=== PATIENT | male | born 1955 | race Caucasian/White ===

== ENCOUNTER 2016-12-13 15:34 | Emergency (ER) | payer BC ==
[2016-12-13 16:02] VITALS: BP 129/71
[2016-12-13] MEDS ORDERED: Sodium Chloride 0.9% 1,000 ML IV ONE (16:04)
--- NOTE | 2016-12-13 16:04 | EDM.PDOC ---
ED HPI RENAL/ - General Chief Complaint: Genitourinary Problem Stated Complaint: BLADDER INFECTION Time Seen by Provider: 12/13/16 15:58 Source of Information: Reports: Patient History Limitations: Reports: No limitations - History of Present Illness INITIAL COMMENTS - FREE TEXT/NARRATIVE: 61 yo White Male c/o Fever of 102 at home today w/ chills. Pt. states burning urination X 3 days. PMHx. Kidney stones and s/p Lithotripsy for left kidney stone 12/2015. Pt. also admits to small kidney stone on right side. Pt. denies any back pain. Symptom Onset Date: 12/10/16 Symptom Onset Time: 12:00 Timing/Duration: Reports: Day(s): Location: Reports: suprapubic Quality: Reports: burning Severity: moderate Worsens with: Reports: urinating Associated Symptoms: Reports: burning, dysuria - Related Data Allergies/ADRs: Allergies Allergy/AdvReac Type Severity Reaction Status Date / Time No Known Allergies Allergy Verified 12/13/16 15:50 Home Meds: Home Meds Allopurinol [Zyloprim] 300 mg PO DAILY 12/13/16 [History] Lisinopril 10 mg PO DAILY 12/13/16 [History] Metoprolol Succinate [Toprol XL] 100 mg PO DAILY 12/13/16 [History] amLODIPine [Norvasc] 10 mg PO DAILY 12/13/16 [History] Past Medical History Cardiovascular History: Reports: Hypertension Genitourinary History: Reports: Renal calculus - Infectious Disease History Infectious Disease History: Reports: Chicken pox - Past Surgical History Cardiovascular Surgical History: Reports: None Social & Family History - Family History Family Medical History: Noncontributory - Tobacco Use Smoking Status *Q: Never Smoker - Caffeine Use Caffeine Use: Reports: Coffee - Recreational Drug Use Recreational Drug Use: No ED ROS GENERAL - Review of Systems Review Of Systems: See Below Constitutional: Reports: fever, chills HEENT: Reports: No symptoms Respiratory: Reports: No Symptoms Cardiovascular: Reports: No symptoms Endocrine: Reports: no symptoms GI/Abdominal: Reports: Abdominal pain : Reports: dysuria Musculoskeletal: Reports: no symptoms Skin: Reports: no symptoms Neurological: Reports: No Symptoms Psychiatric: Reports: No symptoms Hematologic/Lymphatic: Reports: no symptoms Immunologic: Reports: no symptoms ED EXAM, RENAL/ - Physical Exam Exam: See Below Exam Limited By: No limitations General Appearance: obese (Morbid) Eye Exam: bilateral eye: PERRL Ears: normal external exam Nose: normal inspection Throat/Mouth: Normal inspection Head: atraumatic Neck: normal inspection Respiratory/Chest: no respiratory distress Cardiovascular: normal peripheral pulses GI/Abdominal: tender (suprpubic) Back Exam: normal inspection, full range of motion Extremities: normal inspection, normal range of motion Neurological: alert, oriented, CN II-XII intact Psychiatric: normal affect Skin Exam: Warm, Normal color, No rash Lymphatic: no adenopathy Course - Vital Signs Text/Narrative:: Discussed with patient and Last Recorded V/S: Last Vital Signs Temp 36.8 C 12/13/16 16:01 Pulse 115 H 12/13/16 16:01 Resp 20 12/13/16 16:01 BP 129/71 12/13/16 16:01 Pulse Ox 95 12/13/16 16:01 - Orders/Labs/Meds Orders: Active Orders 24 hr Category Date Time Status Abdomen Pelvis wo Cont [CT] Urgent Exams 12/13/16 16:17 Taken CULTURE URINE [RM] Stat Lab 12/13/16 16:15 Received Labs: Laboratory Tests 12/13/16 12/13/16 Range/Units 15:45 16:10 WBC 14.6 H (5.0-10.0) 10^3/uL RBC 4.89 (4.6-6.2) 10^6/uL Hgb 14.3 (14.0-18.0) g/dL Hct 42.3 (40.0-54.0) % MCV 86.5 (80-100) fL MCH 29.2 (27.0-34.0) pg MCHC 33.8 (33.0-35.0) g/dL Plt Count 145 L (150-450) 10^3/uL Neut % (Auto) 90.5 H (42.2-75.2) % Lymph % (Auto) 4.1 L (20.5-50.1) % [place] % (Auto) 5.1 (2-8) % Eos % (Auto) 0.1 L (1.0-3.0) % Baso % (Auto) 0.2 (0.0-1.0) % Urine Color Dark yellow (YELLOW) Urine Appearance Turbid (CLEAR) Urine pH 5.5 (5.0-9.0) Ur Specific [place] 1.020 (1.005-1.030) Urine Protein 100 H (NEGATIVE) Urine Glucose (UA) Negative (NEGATIVE) Urine Ketones Negative (NEGATIVE) Urine Occult Blood Moderate H (NEGATIVE) Urine Nitrite Positive H (NEGATIVE) Urine Bilirubin Small H (NEGATIVE) Urine Urobilinogen 1.0 (0.2-1.0) mg/dL Ur Leukocyte Esterase Moderate H (NEGATIVE) Urine RBC 5-10 H /HPF Urine WBC Semi-packed H (0-5/HPF) /HPF Urine Bacteria Moderate H (0-FEW/HPF) /HPF Meds: Medications Discontinued Medications Generic Name Dose Route Start Last Admin Trade Name Freq PRN Reason Stop Dose Admin Sodium Chloride 1,000 mls @ 999 mls/hr 12/13/16 16:04 12/13/16 16:13 Normal Saline IV 12/13/16 17:04 999 mls/hr .BOLUS ONE Administration Ceftriaxone Sodium 1 gm/ 50 mls @ 100 mls/hr 12/13/16 16:19 12/13/16 16:26 Sodium Chloride IV 12/13/16 16:48 100 mls/hr ONETIME ONE Administration Departure - Departure Time of Disposition: 17:43 Disposition: Home, Self-Care 01 Condition: good Clinical Impression: UTI, Urinary tract infectious disease, Kidney stone Forms: ED Department Discharge Additional Instructions: Rest Increase intake of Fluids ( Water / Cranberry Juice) Take the oral antibiotic and complete - Levaquin 500mg QD # 7 F/U w/ PCP - My Orders Last 24 Hours: My Active Orders 12/13/16 16:15 CULTURE URINE [RM] Stat 12/13/16 16:17 Abdomen Pelvis wo Cont [CT] Urgent - Assessment/Plan Last 24 Hours: My Active Orders 12/13/16 16:15 CULTURE URINE [RM] Stat 12/13/16 16:17 Abdomen Pelvis wo Cont [CT] Urgent
[2016-12-13] MEDS ORDERED: cefTRIAXone 1 GM in Sodium Chloride 0.9% 50 ML IV ONE (16:19)
--- NOTE | 2017-01-18 12:37 | CT ---
Addendum report: Reevaluation (with Dr. Carl Shah) lumbar spine morbidly obese male with "left scia tic" confirmed signs of chronic multilevel disc disease i.e. interspace narrowing with gas and nucle us pulposus and hypertrophic marginal spondylosis L2-3 and particularly lowest L5-S1 levels. Asymmetric bone encroachment on the left at the L5-S1 level. MRI suggested.
== END 2016-12-13 18:18 | disposition home or self-care (01) ==
LOC: DL.ED 15:34
DX: N20.0 Calculus of kidney (principal); N39.0 Urinary tract infection, site not specified; I10 Essential (primary) hypertension; Z79.899 Other long term (current) drug therapy
CPT/HCPCS: 36415; 74176; 81001; 85025; 87086; 96361; 96365; 99284; J0696; J7030; J7050; 87088; 87186

== ENCOUNTER 2017-01-03 14:13 | Emergency (ER) | payer BC ==
--- NOTE | 2017-01-03 14:19 | EDM.PDOC ---
ED HPI ENT - General Chief Complaint: ENT Problem Stated Complaint: EXTREME EAR ACHES Time Seen by Provider: 01/03/17 14:19 Source of Information: Reports: Patient, RN, RN notes reviewed History Limitations: Reports: No limitations - History of Present Illness INITIAL COMMENTS - FREE TEXT/NARRATIVE: Onset of right ear pain yesterday morning worsened throughout the day. Thought he felt something draining in the ear canal last evening, but did not see any material. Today the ear has become extremely painful and hearing from the right ear seems muffled. Has been working outside and in the field and has some sinus inflammation. Denies fever, chills or cough. Timing/Duration: Reports: Constant Severity: severe Location: Reports: right Ear Quality: Reports: Ache, Throbbing Improves with: Reports: None Worsens with: Reports: None Associated Symptoms: Reports: no other symptoms - Related Data Allergies/ADRs: Allergies Allergy/AdvReac Type Severity Reaction Status Date / Time No Known Allergies Allergy Verified 01/03/17 14:24 Home Meds: Home Meds Allopurinol [Zyloprim] 300 mg PO DAILY 12/13/16 [History] Lisinopril 10 mg PO DAILY 12/13/16 [History] Metoprolol Succinate [Toprol XL] 100 mg PO DAILY 12/13/16 [History] amLODIPine [Norvasc] 10 mg PO DAILY 12/13/16 [History] Past Medical History Cardiovascular History: Reports: Hypertension Genitourinary History: Reports: Renal calculus Musculoskeletal History: Reports: Gout Endocrine/Metabolic History: Reports: Obesity/BMI 30+ - Infectious Disease History Infectious Disease History: Reports: Chicken pox - Past Surgical History Cardiovascular Surgical History: Reports: None Social & Family History - Family History Family Medical History: Noncontributory - Tobacco Use Smoking Status *Q: Never Smoker - Caffeine Use Caffeine Use: Reports: Coffee - Recreational Drug Use Recreational Drug Use: No - Living Situation & Occupation Living situation: Reports: Occupation: employed (self) ED ROS ENT - Review of Systems Review Of Systems: ROS reveals no pertinent complaints other than HPI. ED EXAM, ENT - Physical Exam Exam: See Below Exam Limited By: No limitations General Appearance: alert, WD/WN, no apparent distress, obese Eye Exam: bilateral eye: normal inspection Ears: auricular erythema (at the tragus and innerhelix adjacent to the canal. ) , auricular tenderness, canal discharge (yellow and green right. ), canal swelling, other (unable to visualize right TM.). No: mastoid swelling, mastoid tenderness Nose: no blood, nasal discharge (clear) Mouth/Throat: Normal inspection, Normal gums, Normal lips, Normal oropharynx, Normal teeth Head: atraumatic, normocephalic Neck: normal inspection, supple, non-tender, full range of motion. No: lymphadenopathy (L), lymphadenopathy (R) Respiratory/Chest: no respiratory distress, lungs clear, normal breath sounds, no accessory muscle use, chest non-tender Cardiovascular: regular rate, rhythm Neurological: alert, oriented, no motor/sensory deficits Psychiatric: normal affect, normal mood Skin: Warm, Dry, Intact, No rash Course - Vital Signs Last Recorded V/S: Last Vital Signs Temp 35.9 C 01/03/17 14:21 Pulse 93 01/03/17 14:21 Resp 18 01/03/17 14:21 BP 152/84 H 01/03/17 14:21 Pulse Ox 97 01/03/17 14:21 Departure - Departure Time of Disposition: 14:24 Disposition: Home, Self-Care 01 Condition: good Clinical Impression: Cellulitis of right external ear Otitis externa Qualifiers: Otitis externa type: unspecified type Laterality: right Chronicity: acute Qualified Code(s): H60.501 - Unspecified acute noninfective otitis externa, right ear Instructions: Otitis Externa, [id number], Cellulitis, Adult, [id number] Forms: ED Department Discharge Additional Instructions: Cipro 500mg. Cortisporin otic suspension. Albert 5mg/325mg. *do not drive or operate [employer] while taking this medications. Follow up in clinic with Dr. Shah in 3-5 days for recheck.
[2017-01-03 14:24] VITALS: BP 152/84
== END 2017-01-03 14:37 | disposition home or self-care (01) ==
LOC: DL.ED 14:13
DX: H60.11 Cellulitis of right external ear (principal); H60.501 Unspecified acute noninfective otitis externa, right ear; I10 Essential (primary) hypertension; E66.9 Obesity, unspecified; Z79.899 Other long term (current) drug therapy; Z68.30 Body mass index [BMI] 30.0-30.9, adult
CPT/HCPCS: 99282

== ENCOUNTER 2018-12-02 06:42 | Day surgery (SDC) | payer BC ==
[~2018-12-02 06:42] MED LIST: Dextrose 5%-0.45% NaCl 1,000 ML IV SCH; Midazolam 1 MG/ML 2 ML SDV ONE; Sodium Chloride 0.9% 10 ML Syringe FLUSH PRN; fentaNYL 100 MCG/2 ML SDV ONE
[2018-12-02] MEDS ORDERED: fentaNYL 100 MCG/2 ML SDV IV ONE ×3 (06:43→08:12)
[2018-12-02] MEDS ORDERED: Midazolam 1 MG/ML 2 ML SDV IV ONE ×5 (06:43→08:16)
[2018-12-02] MEDS ORDERED: Dextrose 5%-0.45% NaCl 1,000 ML IV SCH (07:30)
--- NOTE | 2018-12-02 09:04 | OR ---
DATE: 12/02/2018 PROCEDURE: Total colonoscopy. INSTRUMENT USED: [id number] Olympus video colonoscope. PREMEDICATIONS: Fentanyl 100 mcg intravenous, Versed 4 mg intravenous, nasal O2 cannula. The procedure was done under pulse oximetry, BP recording, and axminster weaver. INDICATION: The patient with increasing constipation, unexplained. Colonoscopic examination is done for detection of any polypoid lesions and removal, endoscopic hemostasis therapy if needed. DESCRIPTION OF PROCEDURE: Initial rectal exam was unremarkable. Rigid anoscopy was normal. The colonoscope was passed with ease up to the ileocecal area, photographs were taken of the normal appearing cecum, identified by landmarks of appendiceal orifice and double-bulged ileocecal folds. No bleeding was noted from any of the visualized areas at the commencement of the examination. The bowel preparation was found to be adequate, [place] Scale 2. No stricture. No vascular ectasia. No large isolated ulceration seen. No evidence of diffuse inflammatory bowel disease in the form of friability, contact bleeding, or ulcerations. No polyp or tumor mass identified. Probing the proximal sides of folds and flexures, using adequate distention and clearing up the stool material, withdrawal of the scope was made. [id number] time over 6 minutes. No bleeding was noted from any of the visualized areas at the completion of the examination. IMPRESSION: Normal study. The patient tolerated the procedure well. [facility] /[id number]
[2018-12-02 10:37] VITALS: BP 110/64
== END 2018-12-02 10:30 | disposition home or self-care (01) ==
LOC: DL.ENDO 06:42
PROVIDERS: ATTEND Internal Medicine Gastroenterology
DX: K59.00 Constipation, unspecified (principal); E66.09 Other obesity due to excess calories; Z68.44 Body mass index [BMI] 60.0-69.9, adult; I10 Essential (primary) hypertension; G47.33 Obstructive sleep apnea (adult) (pediatric); M19.90 Unspecified osteoarthritis, unspecified site; R73.9 Hyperglycemia, unspecified
CPT/HCPCS: 45378; J2250; J3010; J7042

== ENCOUNTER 2022-10-02 05:19 | Day surgery (SDC) | payer MEDICARE, BC ==
[~2022-10-02 05:19] MED LIST changes: -Dextrose 5%-0.45% NaCl 1,000 ML IV SCH; -Midazolam 1 MG/ML 2 ML SDV ONE; -Sodium Chloride 0.9% 10 ML Syringe FLUSH PRN; +Sodium Chloride 0.9% 10 ML Syringe FLUSH SCH; -fentaNYL 100 MCG/2 ML SDV ONE
[2022-10-02] MEDS ORDERED: Midazolam 1 MG/ML 2 ML SDV IV ONE ×3 (05:20→06:36)
[2022-10-02] MEDS ORDERED: fentaNYL 100 MCG/2 ML SDV IV ONE ×3 (05:20→06:35)
[2022-10-02] MEDS ORDERED: Midazolam 1 MG/ML 2 ML SDV ONE (06:18)
[2022-10-02] MEDS ORDERED: fentaNYL 100 MCG/2 ML SDV ONE (06:18)
[2022-10-02] MEDS ORDERED: Dextrose 5%-0.45% NaCl 1,000 ML IV SCH (06:30)
[2022-10-02] MEDS ORDERED: Sodium Chloride 0.9% 10 ML Syringe FLUSH PRN (06:30)
[2022-10-02 08:51] VITALS: BP 131/79; PULSE 59
== END 2022-10-02 08:40 | disposition home or self-care (01) ==
LOC: DL.ENDO 05:19
PROVIDERS: ATTEND Internal Medicine Gastroenterology
DX: D12.0 Benign neoplasm of cecum (principal); D12.3 Benign neoplasm of transverse colon; K64.8 Other hemorrhoids; I10 Essential (primary) hypertension; E66.01 Morbid (severe) obesity due to excess calories; G47.33 Obstructive sleep apnea (adult) (pediatric); E78.5 Hyperlipidemia, unspecified; D86.9 Sarcoidosis, unspecified; Z98.890 Other specified postprocedural states; Z68.43 Body mass index [BMI] 50.0-59.9, adult
CPT/HCPCS: 45385; J2250; J3010; J7042; 88305

== ENCOUNTER 2023-05-24 15:17 | Emergency (ER) | payer MEDICARE, BC ==
[2023-05-24 15:35] VITALS: BP 120/65; PULSE 70
[2023-05-24 16:01] LABS: BASOPHILS PERCENT AUTO 0.3 % (0.0-1.0); EOSINOPHILS PERCENT AUTO 1.5 % (1.0-3.0); HEMOGLOBIN 16.5 g/dL (14.0-18.0); LYMPHOCYTES PERCENT AUTO 10.5 % (20.5-50.1); MEAN CORPUSCULAR HEMOGLOBIN 30.4 pg (27.0-34.0); MEAN CORPUSCULAR HGB CONC 33.7 g/dL (33.0-35.0); MEAN CORPUSCULAR VOLUME 90.2 fL (80-100); MONOCYTES PERCENT AUTO 9.1 % (2-8); NEUTROPHILS PERCENT AUTO 78.6 % (42.2-75.2); PLATELET COUNT,PLT 219 10^3/uL (150-450); RED BLOOD CELL COUNT 5.43 10^6/uL (4.6-6.2); WHITE BLOOD CELL COUNT,WBC 11.3 10^3/uL (5.0-10.0)
[2023-05-24] MEDS ORDERED: Heparin Sodium 5,000 Units/ML Vial IVPUSH ONE (16:03)
[2023-05-24 16:10] LABS: PROTHROMBIN TIME 10.4 SEC (9.0-12.0); PTT,PARTIAL THROMBOPLSTIN TIME 25.1 SEC (22.0-34.0)
[2023-05-24 16:13] LABS: ALBUMIN 3.8 g/dL (3.4-5.0); ANION GAP 13.6 mEq/L (7-13); BILIRUBIN TOTAL 1.6 mg/dL (0.2-1.0); BUN/CREATININE RATIO 16.7 (No establ ref range); C-REACTIVE PROTEIN 0.06 ng/dL (<=0.30); CALCIUM 9.4 mg/dL (8.5-10.1); CREATININE 1.26 mg/dL (0.70-1.30); EST CRCL DRUG DOSING (CG) 57.94 mL/min; POTASSIUM,K 4.6 mmol/L (3.5-5.1); PROTEIN TOTAL,TP 7.6 g/dL (6.4-8.2)
[2023-05-24] MEDS ORDERED: Heparin Sodium/0.45% NaCl 25,000 UNITS/500 ML BAG IV SCH (16:15)
[2023-05-24] MEDS ORDERED: Clopidogrel 75 MG Tab PO ONE ×2 (16:22→16:39)
[2023-05-24] MEDS ORDERED: Aspirin 81 MG Tab.Chew PO ONE (16:22)
[2023-05-24] MEDS ORDERED: atorvaSTATin 20 MG Tab PO ONE (16:22)
== END 2023-05-24 17:16 ==
LOC: DL.ED 15:17
DX: I21.4 Non-ST elevation (NSTEMI) myocardial infarction (principal); I44.0 Atrioventricular block, first degree; I10 Essential (primary) hypertension; E78.5 Hyperlipidemia, unspecified; E66.9 Obesity, unspecified; Z68.43 Body mass index [BMI] 50.0-59.9, adult; Z86.16 Personal history of COVID-19; Z79.899 Other long term (current) drug therapy
CPT/HCPCS: 36415; 71045; 80053; 83690; 84484; 85025; 85610; 85730; 86140; 93005; 96365; 96376; 99285-25; A9270-GY; J1644